=== PATIENT | male | born 1985 | race Caucasian/White ===

== ENCOUNTER 2019-12-14 08:31 | Outpatient (CLI) | payer OTHER, SELFPAY ==
--- NOTE | 2019-12-14 08:48 | MR_ITS ---
WS: [id number] MRI NECK WITH CONTRAST TECHNIQUE: Noncontrast axial T1, axial T2 FSE fat sat, coronal T2 fat sat, coronal T1, coronal T1 fat sat, sagittal T2 fat sat, plus contrast enhanced coronal, sagittal, and axial T1 fat sat images obta ined. CLINICAL INFORMATION: BILATERAL OTALGIA COMPARISON: None. FINDINGS: Parotid glands are normal. Normal submandibular glands. Normal palatine tonsils. Tongue base appears normal. No evidence of supraglottic or glottic mass. Normal epiglottis. Normal piriform sinuses. Normal posterior fossa. Normal vascular flow voids at the skull base. Mastoid air cells well aerated. Normal optic chiasm and pituitary infundibulum. Prominent right jugulodigastric lymph node measuring 11 mm in short axis dimension. Smaller slightly prominent left jugular digastric lymph node measuring 8 mm in short axis dimension. Cervical canal is patent. Cord signal appears normal. Mild disc bulging C3-C4. Thyroid gland is normal. No evidence of supraclavicular mass or lesion. No cervical lymphadenopathy. MR/MR orbit face neck wo/w* [id number] IMPRESSION: 1. Salivary glands are normal in appearance. 2. No evidence of supraglottic or glottic mass. Tongue base appears normal. No rmal parapharyngeal fat. 3. Slightly prominent right greater than left jugulodigastric lymph nodes dwayne uring 11 mm short axis dimension the right. No cervical lymphadenopathy. 4. Mastoid air cells well aerated. 5. No evidence of supraclavicular mass or lesion.
== END 2019-12-14 08:32 | disposition home or self-care (01) ==
LOC: RADWPI 08:37
PROVIDERS: Family Provider Emergency Medicine Emergency Medical Services; PCP Emergency Medicine Emergency Medical Services; Visit Provider Specialist
DX: H92.03 Otalgia, bilateral (principal)
CPT/HCPCS: 70543; A9579

== ENCOUNTER → 2020-02-12 09:15 | Outpatient (BNVA) | payer OTHER, SELFPAY | PROVIDERS: Family Provider Emergency Medicine Emergency Medical Services; PCP Emergency Medicine Emergency Medical Services; Referring Provider Specialist; Visit Provider Nurse Practitioner | DX: G43.909 Migraine, unspecified, not intractable, without status migrainosus (principal) | CPT/HCPCS: 99204 ==

== ENCOUNTER 2020-03-12 10:55 | Outpatient (CLI) | payer OTHER, SELFPAY ==
--- NOTE | 2020-03-12 11:23 | MR_ITS ---
WS: [id number] MRI HEAD WITH CONTRAST TECHNIQUE: Sagittal T1, T2 axial, T2 axial FLAIR, axial susceptibility weighted imaging, axial diffus ion weighted images, and coronal T2 images were obtained. Pre and post-T1 axial and post T1 coronal i mages. ADC and FSPGR images. CLINICAL INFORMATION: see dx COMPARISON: None. FINDINGS: No evidence restricted diffusion to suggest acute ischemia. Ventricular system and basal cisterns are patent. Mild supratentorial white matter changes nonspecific in a patient this age but can be seen w ith migraine headaches. Normal posterior fossa. Normal vascular flow voids at the skull base. No extr a-axial fluid collections. No evidence of mass or mass effect. Mucosal thickening left frontal sinus and frontal ethmoidal reces s. Mucosal thickening ethmoid air cells. Mastoid air cells are well aerated. No hemosiderin on suscep tibly weighted images. Normal optic chiasm and pituitary infundibulum. Temporal lobes and hippocampal formations are normal in appearance. No abnormal gadolinium enhancement. Normal Meckel's cave and cavernous sinuses. Normal dural venous sinuses. MR/MR head wo/w con [id number] IMPRESSION: 1. No evidence of restricted diffusion to suggest acute ischemia. 2. Mild supratentorial white matter changes nonspecific in a patient this age but can be seen with migraine headaches. 3. Mild mucosal thickening in the paranasal sinuses. 4. No abnormal intracranial enhancement. 5. No hemosiderin on the susceptibility weighted images. 6. No other significant findings.
== END 2020-03-12 10:56 | disposition home or self-care (01) ==
LOC: RADWPI 11:05
PROVIDERS: PCP Emergency Medicine Emergency Medical Services; Visit Provider Nurse Practitioner
DX: G43.909 Migraine, unspecified, not intractable, without status migrainosus (principal)
CPT/HCPCS: 70553; A9579

== ENCOUNTER → 2020-03-21 13:55 | Outpatient (BNVA) | payer OTHER, SELFPAY | PROVIDERS: PCP Emergency Medicine Emergency Medical Services; Visit Provider Nurse Practitioner | DX: G43.909 Migraine, unspecified, not intractable, without status migrainosus (principal) | CPT/HCPCS: 99213 ==

== ENCOUNTER 2020-10-09 14:49 | Outpatient (CLI) | payer OTHER, SELFPAY ==
--- NOTE | 2020-10-09 15:15 | MR_ITS ---
WS: [id number] MRI BRAIN WITH AND WITHOUT CONTRAST HISTORY: Abnormal MRI brain/headache COMPARISON: 03/12/2020 TECHNIQUE: Multiplanar imaging performed through the brain with MultiHance 20 ml's IV. No acute infarcts are seen. Archuleta-white matter differentiation is well preserved. There are numerous T 2 and FLAIR signal hyperintensities in subcortical white matter in the bilateral frontal lobes, simil ar to the prior study. No significant increase in the white matter disease. No prior infarcts or hemo rrhage. No susceptibility artifacts or prior lacunar infarcts. Ventricles and extra-axial spaces are normal. Clivus and pituitary gland are normal. Visualized posterior fossa and brainstem are also normal. Postcontrast images are negative for masses or vascular malformations. Dural venous sinuses are normal. Paranasal sinuses: Dense mucoperiosteal thickening in the LEFT frontal and frontal ethmoid recess. Ot herwise sinuses are clear. Mastoid air cells: Normal. Calvarium and scalp: Normal. MR/MR head wo/w con [id number] IMPRESSION: 1. Mild to moderate T2 and FLAIR signal hyperintensities in the subcortical wh ite matter of the frontal lobes. More than typically noted for a patient of thi s age. No progression since the prior study. Etiologies to consider are related to hypertension and migraines. 2. LEFT frontal and frontal ethmoid sinusitis. 3. No enhancing masses.
[2020-10-09] MEDS: gadobenate dimeglumine 20 mL vial IV (15:36)
== END 2020-10-09 14:50 | disposition home or self-care (01) ==
LOC: RADSHAW 14:50
PROVIDERS: PCP Emergency Medicine Emergency Medical Services; Visit Provider Nurse Practitioner
DX: G43.909 Migraine, unspecified, not intractable, without status migrainosus (principal); R90.89 Other abnormal findings on diagnostic imaging of central nervous system
CPT/HCPCS: 70553; A9577

== ENCOUNTER 2021-05-19 12:14 | Emergency (ER) | payer OTHER, SELFPAY ==
[2021-05-19 12:24] VITALS: BP 141/94; PULSE 65; RESP 15; TEMP 36.8; O2SAT 99; BMI 26.4
--- NOTE | 2021-05-19 12:37 | XRR_ITS ---
PROCEDURE INFORMATION: Exam: XR Chest Exam date and time: 05/19/2021 12:37 PM Age: 35 years old Clinical indication: Left-sided; Patient HX: Left sided chest pain for 10 days TECHNIQUE: Imaging protocol: XR of the chest. Views: 2 views. COMPARISON: MR orbit face neck wo/w* [id number] 12/14/2019 8:43 AM FINDINGS: Lungs: Unremarkable. No consolidation. Pleural spaces: Unremarkable. No pleural effusion. No pneumothorax. Heart/Mediastinum: Unremarkable. No cardiomegaly. Bones/joints: Unremarkable. XR/XR chest 2V* [id number] IMPRESSION: No acute findings. Radiation Dose CTDIVOL = (mGy): DLP = (mGy-cm)
--- NOTE | 2021-05-19 12:38 | ECG_ITS ---
[facility] Test Date: 2021-05-19 Pat Name: Boby Ricketts Department: Room: Gender: Male Machine Inker: : 1985 Requested By: Vitaliy Ladd Order Number: [id number] Brian MD: Ariel Avila M.D. Measurements Intervals Maxwell Rate: 69 P: 65 KS: 155 QRS: 50 QRSD: 83 T: 58 QT: 360 QTc: 386 Interpretive Statements SINUS RHYTHM MODERATE ST DEPRESSION [0.05+ mV ST DEPRESSION] No previous ECG available for comparison Electronically Signed On 05-19-2021 20:02:18 PREVENTIVE MAINTENANCE COORDINATOR by Ariel Avila M.D. [id number]
[2021-05-19 12:57] LABS: Basophils % 0.8 %; Eosinophils # 0.1 10^3/uL (0.0-0.8); Eosinophils % 1.4 %; Hematocrit 43.8 % (42.0-52.0); Hemoglobin 15.3 g/dL (11.7-16.6); Lymphocytes # 1.3 10^3/uL (0.8-4.8); Lymphocytes % 24.4 %; Mean Corpuscular HGB Conc 34.9 g/dL (30.0-36.0); Mean Corpuscular Hemoglobin 31.5 pg (28.0-34.0); Mean Corpuscular Volume 90.1 fl (80-94); Mean Platelet Volume 10.2 fL (7.4-10.4); Monocytes # 0.3 10^3/uL (0.2-0.9); Monocytes % 5.8 %; Neutrophils # 3.45 10^3/uL (1.8-7.7); Neutrophils % 67.2 %; Nucleated Red Blood Cells % 0 %; Platelet Count 246 10^3/cmm (130-400); Red Blood Count 4.86 10^6/uL (4.1-5.3); Red Cell Distribution Width 11.1 % (12.1-15.1); White Blood Count 5.1 10^3/uL (4.0-10.0)
[2021-05-19] MEDS: acetaminophen 500 mg Tablet 1000 MG PO (13:04)
[2021-05-19 13:15] LABS: D Dimer 0.32 ug/mIFEU (0-0.59)
[2021-05-19 13:20] LABS: Anion Gap 13.9 (5-19); Blood Urea Nitrogen 19 mg/dL (6-20); Calcium 9.1 mg/dL (8.5-10.5); Carbon Dioxide 28 mmol/L (22-29); Chloride 105 mmol/L (98-107); Glucose 100 mg/dL (65-115); Osmolality Calculated 298 mOsm/kg (285-295); Potassium 3.9 mmol/L (3.5-5.1); Sodium 143 mmol/L (136-145)
[2021-05-19 13:22] LABS: Troponin(5th) Baseline 6 ng/L (0-15)
--- NOTE | 2021-05-19 13:36 | ED_ITS ---
HPI - General Adult General: Chief complaint: Chest Pain Stated complaint: Chest Pain Time Seen by Provider: 05/19/21 12:36 History of Present Illness: HPI narrative: CC: Chest Pain HPI: This is a [35] yo patient w/ no PMH presenting to the ED complaining of a cute sudden onset intermittent dull chest pain x 1 week with radiation to the L shoulder and L neck. Patient also that he has associated fatigue in the morningwith this pain. He tells me that he has about 8-10 of these episodes lasting for few seconds at a time. Patient denies any chest tightness, first of breath, stabbing chest pain, fever/chills or recent trauma. No associated with shortness of breath, chest pain or dyspnea on exertion. Pain is not tearing in nature and does not radiate to the back. Pain not associated with vomiting or PO intake. Denies any recent sympathomimetic drug use. Patient denies any cough. Denies palpitations, dysphagia, diaphoresis, radiation of pain to bilateral arms, jaw. Denies F/N/V/D. Patient denies any recent immobility, surgery, unilateral leg swelling, or prior PE. Patient denies any orthopnea. Onset: 1 week ago Duration: ongoing for the last 1 week Location: home Severity: mild/moderate Review of Systems Narrative: Constitutional: No fever, no chills. HEENT: No vision changes, no sore throat. CV: +chest pain, no palpitations. PULM: No cough, No dyspnea. GI: No abdominal pain, no N/V/D. : No dysuria, no frequency, no hematuria. MSKEL: No arthralgias, no edema. SKIN: No new rashes, no lesions. NEURO: No headache, no focal weakness. HEME: No easy bleeding or bruising. PSYCH: No change in mood or affect. [facility] ED PFSH: Medical History (Updated 05/19/21 @ 12:42 by Vitaliy Ladd MD) Abnormal brain MRI Family History Mother Mitral valve prolapse Other Cancer Social History Smoking and tobacco status: current some day smoker Physical Exam Narrative: EXAM NARRATIVE: Head: Atraumatic, normocephalic Eyes: PERRL, EOMI, conjunctiva without injection ENT: Throat without erythema, lesions or exudate, MMM NECK: Supple, trachea midline, no JVD LUNGS: LCTA CV: RRR, S1,S2, no murmurs, rubs, gallops. 2+ peripheral pulses in UEs ABDOMEN: Soft, nontender, nondistended, BS x4, no rigidity, no guarding, no rebound EXTREMITY: Normal ROM, no pitting edema, no calf tenderness to palpation SKIN: No rash or erythema NEURO: Awake and alert. No focal motor deficits. PSYCH: Normal mood and affect. Course Vital Signs: Vital signs: Vital Signs Temperature 98.2 F 05/19/21 12:24 Pulse Rate 62 05/19/21 14:21 Respiratory Rate 16 05/19/21 14:21 Blood Pressure 139/96 05/19/21 14:21 Pulse Oximetry 99 05/19/21 14:21 MDM - General Adult MDM Narrative: Medical decision making narrative: [35]yo patient presenting to the ED with evaluation of new onset sharp chest pain. HDS, pulse 2+ radially bilaterally, no signs of fluid overload, AAOx3, neuro exam intact. Given History and Exam today I have no suspicion for ACS, Pneumothorax, Pneumonia, Pulmonary Embolus, Tamponade, Aortic Dissection or other emergent problems as a cause for this presentation. Workup: ECG, CXR, CBC, BMP, Troponin Interventions: Tylenol and toradol Findings: ECG: No overt evidence of STEMI, hyperacute T waves, localizable STD or T wave inversions. No evidence of Brugada?s sign, delta wave, epsilon wave, significantly prolonged QTc, or malignant arrhythmia. No Q waves. Other Labs unremarkable for emergent problems. CXR: Without PTX, PNA, or widened mediastinum Last Stress Test: never Last Heart Catheterization: never HEART Score: 0 Dimer wnl [1:38pm] On reassessment, the patient is HDS, no complaints of persistent chest pain in the ED after evaluation. ECG is non-ischemic. Workup today is unremarkable. Doubt ACS/PE or other emergent causes of chest pain. Doubt ACS/PE or other emergent causes of chest pain. No suspicion for aortic dissection given no widened mediastinum, 2+ upper extremity pulses, or tearing pain. No suspicion for PE given no pleuritic chest pain, recent immobilization or surgery hemoptysis, or other VTE risk factors. EKG is non-ischemic. XR normal. Patient request to be seen by our italian tutor and have given patient follow-up in the next week. Rx: Tylenol 500mg Q6Hrs PRN pain Disposition: Discharge. Strict return precautions discussed with the patient with full understanding. Advised patient to follow up promptly with a primary care provider in 24-48 hrs if the patient has persistent symptoms. Given return instructions for any crushing/tearing chest pain, focal weakness, syncope or any new or concerning issues. Lab Data: Labs: Lab Results 05/19/21 05/19/21 05/19/21 12:45 12:45 12:45 WBC 5.1 10^3/uL 10^3/ uL (4.0-10.0) RBC 4.86 10^6/uL 10^6 /uL (4.1-5.3) Hgb 15.3 g/dL g/dL (11.7-16.6) Hct 43.8 % % (42.0-52.0) MCV 90.1 fl fl (80-94) MCH 31.5 pg pg (28.0-34.0) MCHC 34.9 g/dL g/dL (30.0-36.0) RDW 11.1 % L % (12.1-15.1) Plt Count 246 10^3/cmm 10^3 /cmm (130-400) MPV 10.2 fL fL (7.4-10.4) Neut % (Auto) 67.2 % % Lymph % (Auto) 24.4 % % [place] % (Auto) 5.8 % % Eos % (Auto) 1.4 % % Baso % (Auto) 0.8 % % Neut # (Auto) 3.45 10^3/uL 10^3 /uL (1.8-7.7) Lymph # (Auto) 1.3 10^3/uL 10^3/ uL (0.8-4.8) [place] # (Auto) 0.3 10^3/uL 10^3/ uL (0.2-0.9) Eos # (Auto) 0.1 10^3/uL 10^3/ uL (0.0-0.8) Baso # (Auto) 0.0 10^3/uL 10^3/ uL (0.0-0.1) Nucleated RBC % (a uto) 0 % % Nucleated RBCs # 0.0 /100WBC /100W BC D-Dimer Sodium 143 mmol/L mmol/L (136-145) Potassium 3.9 mmol/L mmol/L (3.5-5.1) Chloride 105 mmol/L mmol/L (98-107) Carbon Dioxide 28 mmol/L mmol/L (22-29) Anion Gap 13.9 (5-19) BUN 19 mg/dL mg/dL (6-20) Creatinine 0.9 mg/dL mg/dL (0.7-1.2) GFR Calculation 96.0 mL/min mL/mi n (90-130) Glucose 100 mg/dL mg/dL (65-115) Calculated Osmolal ity 298 mOsm/kg H mOs m/kg (285-295) Calcium 9.1 mg/dL mg/dL (8.5-10.5) Troponin T Baselin e 6 ng/L ng/L (0-15) 05/19/21 12:45 WBC RBC Hgb Hct MCV MCH MCHC RDW Plt Count MPV Neut % (Auto) Lymph % (Auto) [place] % (Auto) Eos % (Auto) Baso % (Auto) Neut # (Auto) Lymph # (Auto) [place] # (Auto) Eos # (Auto) Baso # (Auto) Nucleated RBC % (a uto) Nucleated RBCs # D-Dimer 0.32 ug/mIFEU ug/ mIFEU (0-0.59) Sodium Potassium Chloride Carbon Dioxide Anion Gap BUN Creatinine GFR Calculation Glucose Calculated Osmolal ity Calcium Troponin T Baselin e Imaging Data^: Other Imaging: Radiologist's impression: [address] [id number] ReportSigned Patient: Boby Ricketts MUnernesto #: [id number]: 1985Acct#:[id number]/Sex: 35 / MADM Date: 05/19/21Loc: ERRoom/Bed:Attending Dr: Ordering Provider/Ordering MD: Vitaliy Ladd MD Date of Service: 05/19/21 Procedure(s): XR chest 2V* [id number] Accession Number(s): [id number] Report Number: [id number] PROCEDURE INFORMATION: Exam: XR Chest Exam date and time: 05/19/2021 12:37 PM Age: 35 years old Clinical indication: Left-sided; Patient HX: Left sided chest pain for 10 days TECHNIQUE: Imaging protocol: XR of the chest. Views: 2 views. COMPARISON: MR orbit face neck wo/w* [id number] 12/14/2019 8:43 AM FINDINGS: Lungs: Unremarkable. No consolidation. Pleural spaces: Unremarkable. No pleural effusion. No pneumothorax. Heart/Mediastinum: Unremarkable. No cardiomegaly. Bones/joints: Unremarkable. XR/XR chest 2V* [id number] IMPRESSION: No acute findings. Radiation Dose CTDIVOL = (mGy): DLP = (mGy-cm) Dictated By:Hector Mendoza By:Hector Mendoza Date/Time:05/19/21 1322DD/ 1237 Discharge Plan Discharge Patient Disposition: Home Clinical Impression: Chest pain Condition: Stable Prescriptions: New acetaminophen 500 mg tablet 500 mg PO Q6H PRN (Reason: pain) 5 Days Qty: 20 RF: 0 No Action acyclovir 400 mg tablet 400 mg PO QDAY PRNRF: 0 loratadine [Claritin] 10 mg tablet 10 mg PO DAILY RF: 0 ketorolac 10 mg tablet 10 mg PO Q6H PRN (Reason: pain) 5 Days Qty: 20 RF: 0 Discharge Orders: Discharge ED (Routine); Ordered 05/19/21 Ordered By: Vitaliy Ladd Referrals: Luke Robert, DO [Primary Care Provider] - Discharge Diet: Advance as tolerated Discharge Activity: Resume usual activity Patient Instructions: Chest Pain (ED) Activity Restrictions/Additional Instructions: Come back to the emergency room if your chest pain worsens, have any fever or chills, worsening shortness of breath, worsening exertional lightheadedness, or any new or concerning complaints. Coding Level of Care Code ED Doll Wig Maker Rooted Hair for [address]
[2021-05-19] MEDS: ketorolac 30 mg/mL INJ IVP (13:48)
[2021-05-19 14:21] VITALS: BP 139/96; PULSE 62; RESP 16; O2SAT 99
--- NOTE | 2021-05-20 15:26 | DCPLANNER ---
district operations manager had message to schedule a follow up appointment for patient with [facility]. district operations manager called [facility], spoke with Angella, gave clinic patients information. A follow up appointment is scheduled for , June 05, 2021 at 2:[address] Stephens. district operations manager called patient and gave him the appointment information. Patient has [employer] insurance, casey saw operator emailed patients information to September with [employer] [facility], so that the authorization process could be started.
--- NOTE | 2021-06-26 14:13 | DCPLANNER ---
Patient had a follow up appointment scheduled with [facility] - appointment was cancelled.
== END 2021-05-19 14:23 | disposition home or self-care (01) ==
PROVIDERS: Emergency Provider Emergency Medicine; PCP Emergency Medicine Emergency Medical Services
DX: R07.9 Chest pain, unspecified (principal); F17.210 Nicotine dependence, cigarettes, uncomplicated
CPT/HCPCS: 71046; 80048; 84484; 85025; 85378; 93005; 96374; 99283; J1885

== ENCOUNTER 2021-07-14 08:09 | Outpatient (CLI) | payer OTHER, SELFPAY ==
[2021-07-14 08:15] VITALS: BP 128/87; PULSE 72; RESP 16; TEMP 36.6; O2SAT 98; BMI 26.9
[2021-07-14 09:09] VITALS: BP 124/84; PULSE 69; RESP 16; TEMP 36.6; O2SAT 96
[2021-07-14 10:09] VITALS: BP 126/85; PULSE 68; RESP 16; TEMP 36.6; O2SAT 99
== END 2021-07-14 08:10 | disposition home or self-care (01) ==
PROVIDERS: PCP Emergency Medicine Emergency Medical Services; Visit Provider Nurse Practitioner Family
DX: U07.1 COVID-19 (principal)
CPT/HCPCS: 96365

== ENCOUNTER 2022-12-01 10:51 | Emergency (ER) | payer OTHER, SELFPAY ==
[2022-12-01 11:03] VITALS: BP 148/97; PULSE 62; RESP 12; TEMP 36.7; O2SAT 100; BMI 29.1
[2022-12-01 11:26] VITALS: BP 138/90; PULSE 55; RESP 16; O2SAT 98
--- NOTE | 2022-12-01 11:28 | CT_ITS ---
WS: [id number] CT THORACIC SPINE TECHNIQUE: Noncontrast CT of the thoracic spine with coronal and sagittal reformatted images. CLINICAL INFORMATION: fall back pain COMPARISON: None. DLP: 1321.[address] scans at [facility] use at least one of these dose optimization techniques: automated e xposure control; mA and/or kV adjustment per patient size (includes targeted exams where dose is matc hed to clinical indication); or iterative reconstruction. FINDINGS: Mild thoracic curve. No acute compression fractures. Disc space heights and vertebral body heights ar e relatively well-preserved. No high-grade central canal stenosis. No acute fractures or dislocation. Adrenal glands are normal. Normal GE junction. Lung bases are well aerated. CT/CT thoracic spin wo con* [id number] IMPRESSION: No acute thoracic spine findings.
--- NOTE | 2022-12-01 11:28 | CT_ITS ---
WS: [id number] CT CERVICAL TRAUMA TECHNIQUE: Noncontrast CT of the cervical spine with coronal and sagittal reformatted images. CLINICAL INFORMATION: fall neck pain COMPARISON: None. DLP: 183.[address] scans at [facility] use at least one of these dose optimization techniques: automated e xposure control; mA and/or kV adjustment per patient size (includes targeted exams where dose is matc hed to clinical indication); or iterative reconstruction. FINDINGS: Straightening of the normal cervical lordosis. Normal craniocervical junction. Normal C1-C2 articulat ion. Dens is normal in appearance. Normal occipital condyles. No high-grade spinal canal narrowing. N ormal C1 ring. No evidence of acute fracture or dislocation. Normal prevertebral soft tissues. Mastoids air cells are well aerated. CT/CT cervical spin wo con* [id number] IMPRESSION: No evidence of acute fracture or dislocation.
--- NOTE | 2022-12-01 11:28 | CT_ITS ---
WS: [id number] CT LUMBAR SPINE TECHNIQUE: Noncontrast CT of the lumbar spine with coronal and sagittal reformatted images. CLINICAL INFORMATION: fall back pain COMPARISON: None. DLP: 1321.[address] scans at [facility] use at least one of these dose optimization techniques: automated e xposure control; mA and/or kV adjustment per patient size (includes targeted exams where dose is matc hed to clinical indication); or iterative reconstruction. FINDINGS: Mild lumbar curve. No acute compression. No high-grade central canal stenosis. Normal transverse processes. Unilateral LEFT L5-S1 pars defect with mild widening and sclerosis. RIGH T pars appears intact. No significant anterolisthesis L5 on S1. Moderate facet arthropathy L4-L5 and L5-S1. Mild disc bulging L4-L5 and L5-S1 with slight effacement of ventral thecal sac. Mild LEFT L4-L5 and bilateral L5-S1 RIGHT greater than LEFT foraminal narrowing. Moderate RIGHT L5-S1 foraminal narrowing. CT/CT lumbar spine wo con* [id number] IMPRESSION: 1. No acute fractures. 2. LEFT unilateral pars defects L5-S1 with mild widening and sclerosis. No si gnificant anterolisthesis. 3. Mild disc bulging L4-L5 and L5-S1 described above with moderate facet arthr opathy at these levels. 4. Moderate RIGHT L5-S1 foraminal narrowing impinges the exiting RIGHT L5 nerv e root.
--- NOTE | 2022-12-01 12:14 | W.ED.FALL ---
HPI - Fall General: Chief Complaint: Fall Stated Complaint: fall, neck and back pain. Sent from [place] Time Seen by Provider: 12/01/22 11:18 History of Present Illness: Patient presents to the ER with complaints of neck pain upper back pain lower back pain. Patient states he was standing on a stool when he fell landed on his right side approximately 1 week ago. Patient has tried massage x2 for this patient went to the [place] doctor today for this and was put in a soft neck collar and sent over here for further imaging. Patient has not seen anyone about this or had any imaging done other than the [place] doctor that sent him over here today. complaint: fall Onset (ago): week(s) (1 week ago) Fall from: standing Loss of consciousness: None Symptoms prior to fall: none Location of injury: head, face and other (Spine) Severity: mild Quality: aching Associated symptoms-after fall: Reports neck pain Review of Systems General: Reports: 10 or more systems reviewed and unremarkable except in HPI and below Musc: Reports: neck pain PFSH ED PFSH: Medical History Abnormal brain MRI Family History Mother Mitral valve prolapse Other Cancer Social History Smoking and tobacco status: current some day smoker Physical Exam Const: COMMON NORMALS: no acute distress, average body habitus, patient oriented x3, no limitations, healthy appearing, alert and well nourished HENMT: COMMON NORMALS: normocephalic, atraumatic, hearing grossly normal bilaterally, external ears normal, Normal external nose present and moist oral mucous membranes HEAD & SCALP: normocephalic and atraumatic NOSE: Normal external nose present EXTERNAL EAR: Yes external ears normal Eye: COMMON NORMALS: Equal, round and reactive pupils present, EOMs intact bilaterally, conjunctivae normal and no scleral icterus CONJUNCTIVA: Yes conjunctivae normal PUPIL: Yes Equal, round and reactive pupils present Neck/C-Spine: COMMON NORMALS: no JVD OTHER: Patient had a soft c-collar on. Chest: COMMONS NORMALS: normal inspection of the chest and normal palpation of entire chest wall Resp: COMMON NORMALS: normal respiratory effort, No retractions, No use of accessory muscles and clear to auscultation bilaterally AUSCULTATION: clear to auscultation bilaterally Cardio: COMMON NORMALS: no JVD, regular rate, regular rhythm, S1 normal heart sound present, S2 normal heart sound present, No gallops present (Cardio), No clicks present (Cardio), No murmurs present (Cardio) and No rub (Cardio) RATE: regular rate RHYTHM: regular rhythm HEART SOUNDS: S1 normal heart sound present and S2 normal heart sound present GI: COMMON NORMALS: Normal to inspection, nondistended, normoactive bowel sounds present, Soft to palpation, non-tender, No hepatosplenomegaly present and no masses PALPATION: Yes Soft to palpation and Yes No hepatosplenomegaly present : COMMON NORMALS: Yes no CVA tenderness BLADDER/KIDNEY EXAM: Yes no CVA tenderness Back/Pelvis: COMMON NORMALS: no CVA tenderness Extremity: NARRATIVE EXTREMITY EXAM: Tenderness along entire spine with tenderness in paraspinal muscles. Limited range of motion secondary to pain Neuro: COMMON NORMALS: patient oriented x3 SENSORIUM/ORIENTATION: Yes alert Course Vital Signs: Vital signs: Vital Signs Temperature 98.1 F 12/01/22 11:03 Pulse Rate 55 L 12/01/22 11:26 Respiratory Rate 16 12/01/22 11:26 Blood Pressure 138/90 12/01/22 11:26 Pulse Oximetry 98 12/01/22 11:26 Oxygen Delivery Me thod Room Air 12/01/22 11:26 MDM - Fall Medical Decision Making Patient presents to the ER with complaints of neck and spinal pain after falling off a stool approximately 1 week ago. Imaging was obtained of the entire spine which was negative for acute injury however did show some foraminal stenosis and spinal stenosis in the L4 the S1 region. Patient was given 60 mg Toradol IM and discharged home patient is to follow-up with his doctor in approximately 1 week. Patient will be given prednisone and cyclobenzaprine to take on an as-needed basis. Differential Diagnosis Unlikely syncope, dislocation of shoulder region, fracture of wrist, compression fracture, concussion with loss of consciousness or concussion without loss of consciousness Medical Records I reviewed the patient's medical records. Lab Data I reviewed the patient's lab results. Radiology Impressions Cervical Spine CT 12/01/22 11:28 IMPRESSION: No evidence of acute fracture or dislocation. Lumbar Spine CT 12/01/22 11:28 IMPRESSION: 1. No acute fractures. 2. LEFT unilateral pars defects L5-S1 with mild widening and sclerosis. No significant anterolisthesis. 3. Mild disc bulging L4-L5 and L5-S1 described above with moderate facet arthropathy at these levels. 4. Moderate RIGHT L5-S1 foraminal narrowing impinges the exiting RIGHT L5 nerve root. Thoracic Spine CT 12/01/22 11:28 IMPRESSION: No acute thoracic spine findings. Discharge Plan Discharge Patient Disposition: Home Clinical Impression: Lumbar spine pain, Thoracic spine pain, Cervical spine pain Fall Qualifiers: Encounter type: initial encounter Qualified Code(s): W19.XXXA - Unspecified fall, initial encounter Condition: Stable Prescriptions: New prednisone 50 mg tablet 50 mg PO DAILY 7 Days Qty: 7 0RF cyclobenzaprine 5 mg tablet 5 mg PO Q8H PRN (Reason: muscle spasm) Qty: 14 0RF No Action loratadine [Claritin] 10 mg tablet 10 mg PO QAM Tylenol Ex Str Rapid Release 500 mg Tablet 1,000 mg PO Q6H PRN (Reason: Pain) acyclovir 200 mg capsule 400 mg PO QAM Flonase 50 mcg/actuation [place],Suspension 2 spray INTRANASAL DAILY PRN (Reason: Allergy Symptoms) Discharge Orders: Discharge ED (Routine); Ordered 12/01/22 Ordered By: Rickey Perrin Referrals: Luke Robert DO [Primary Care Provider] - 1 week Patient Instructions: Acute Low Back Pain (ED), Acute Neck Pain (ED) Coding Level of Care Code ED Resident Care Technician for [facility] [address]
--- NOTE | 2022-12-01 12:40 | PC.PHAR ---
pt states he takes care of his own medications-pt states he is not taking terbinafine 250mg daily medication [facility] -pt states he takes acyclovir 400mg qam [facility] has 400mg bid-
[2022-12-01] MEDS: ketorolac 60 mg/2 mL INJ IM (13:12)
[2022-12-01 13:30] VITALS: BP 128/85; PULSE 84; RESP 18; O2SAT 98
== END 2022-12-01 13:32 | disposition home or self-care (01) ==
PROVIDERS: Emergency Provider Emergency Medicine; PCP Emergency Medicine Emergency Medical Services
DX: M54.50 Low back pain, unspecified (principal); M54.2 Cervicalgia; M54.6 Pain in thoracic spine
CPT/HCPCS: 72125; 72128; 72131; 96372; 99284; J1885

== ENCOUNTER → 2024-03-08 10:08 | Outpatient (BNVA) | payer SELFPAY | PROVIDERS: PCP Emergency Medicine Emergency Medical Services; Visit Provider Nurse Practitioner Family | DX: R09.89 Other specified symptoms and signs involving the circulatory and respiratory systems (principal) | CPT/HCPCS: 87071; 87880 ==

== ENCOUNTER 2024-04-19 20:00 | Outpatient (CLI) | payer SELFPAY | END 2024-04-19 20:01 | disposition home or self-care (01) | LOC: SLEEP 23:23 | PROVIDERS: PCP Emergency Medicine Emergency Medical Services; Visit Provider Nurse Practitioner Family | DX: R40.0 Somnolence (principal); R06.83 Snoring | CPT/HCPCS: 95810 ==

== ENCOUNTER 2024-05-23 08:25 | Outpatient (CLI) | payer OTHER, SELFPAY ==
[2024-05-23 08:37] LABS: Sperm Present Sperm Not Present
== END 2024-05-23 08:26 | disposition home or self-care (01) ==
PROVIDERS: PCP Emergency Medicine Emergency Medical Services; Visit Provider Emergency Medicine Emergency Medical Services
DX: Z98.52 Vasectomy status (principal)
CPT/HCPCS: 89310

== ENCOUNTER 2024-05-28 17:09 | Emergency (ER) | payer OTHER, SELFPAY ==
[2024-05-28 17:23] VITALS: BP 142/92; PULSE 59; RESP 16; O2SAT 99; BMI 28.5
--- NOTE | 2024-05-28 17:30 | XRR_ITS ---
PROCEDURE INFORMATION: Exam: XR Right Hand Exam date and time: 05/28/2024 5:37 PM Age: 38 years old Clinical indication: Pain; Other: RT thumb; Additional info: Thumb injury TECHNIQUE: Imaging protocol: Radiologic exam of the right hand. Views: 3 or more views. COMPARISON: No relevant prior studies available. FINDINGS: Bones/joints: Normal. Soft tissues: Normal. XR/XR hand RT min 3V* [id number] IMPRESSION: No acute findings.
--- NOTE | 2024-05-28 17:34 | W.ED.EXTPRO ---
Documented by User: AMIRA Adler 05/28/24 18:22 HPI - Extremity Problem General: Chief complaint: Extremity Injury, Upper Stated complaint: smashed thumb Time Seen by Provider: 05/28/24 17:19 Source: patient Mode of arrival: ambulatory Limitations: no limitations History of Present Illness: Patient is a 38-year-old male present to the emergency department after right thumb injury occurred around 1630. States he was lifting weights when he smashed his thumb it between barbell and a weight bench, is having trouble moving the thumb and is having numbness. States that it feels really tight and he cannot make a fist. He has not taken anything for the pain yet, however did apply ice after this happened. He is right-hand dominant. No other concerning symptoms reported at this time. MD Complaint: extremity pain Onset (ago): hour(s) Pain Consistency: constant Location: right and upper extremity (thumb) Radiation: proximal Relieving factors: nothing Exacerbating factors: range of motion Associated symptoms: Deny chest pain, fever(s) or rash Related Data Home Medications Medication Instructions Recorded Confirmed loratadine 10 mg tablet (Claritin) 10 mg PO QAM 02/12/20 03/08/24 acetaminophen 500 mg tablet 1,000 mg PO Q6H PRN Pain 12/01/22 03/08/24 acyclovir 200 mg capsule 400 mg PO QAM 12/01/22 03/08/24 fluticasone propionate 50 2 spray intranasal DAILY PRN 12/01/22 03/08/24 mcg/actuation nasal Allergy Symptoms spray,suspension Previous Rx's Medication Instructions Recorded cyclobenzaprine 5 mg tablet 5 mg PO Q8H PRN muscle spasm #14 12/01/22 tabs Allergies Allergy/AdvReac Type Severity Reaction Status Date / Time No Known Allergies Allergy Verified 03/08/24 09:47 Review of Systems General: Reports: 10 or more systems reviewed and unremarkable except in HPI and below Const: Denies: fever(s) or chills Card: Denies: chest pain Resp: Denies: dyspnea or productive cough GI: Denies: abdominal pain, nausea, vomiting or diarrhea : Denies: flank pain Musc: Reports: extremity pain (right thumb) and limited range of motion (right thumb); Denies: neck pain, back pain, extremity swelling, joint pain, joint swelling, joint redness, joint warmth or muscle weakness Skin/Breast: Denies: rash Neuro: Denies: headache(s), numbness in extremities or weakness in extremities PFSH ED PFSH: Medical History Abnormal brain MRI Family History Mother Mitral valve prolapse Other Cancer Social History Smoking and tobacco/nicotine status: unknown if used tobacco/nicotine Physical Exam Const: COMMON NORMALS: no acute distress, patient oriented x3, no limitations, healthy appearing, alert and well nourished HENMT: COMMON NORMALS: normocephalic and atraumatic HEAD & SCALP: normocephalic and atraumatic Neck/C-Spine: COMMON NORMALS: full ROM, supple and no meningeal signs Resp: COMMON NORMALS: normal respiratory effort, No use of accessory muscles and clear to auscultation bilaterally AUSCULTATION: clear to auscultation bilaterally Cardio: COMMON NORMALS: regular rate and regular rhythm RATE: regular rate RHYTHM: regular rhythm Extremity: COMMON NORMALS: capillary refill normal, no joint enlargement and no clubbing, cyanosis or edema NARRATIVE EXTREMITY EXAM: Tender to palpation diffusely along the right thumb. No anatomical snuffbox tenderness. No obvious swelling of the right thumb. No bruising. Limited range of motion with opposition as well as flexion/extension. Normal wrist exam. Normal elbow exam. Neuro: COMMON NORMALS: patient oriented x3, moves all extremities, no focal motor deficits and no sensory deficits noted SENSORIUM/ORIENTATION: Yes alert MENINGEAL SIGNS: Yes no meningeal signs Skin: COMMON NORMALS: no rashes or lesions noted GENERAL SKIN EXAM: no rashes or lesions noted Course Vital Signs: Vital signs: Vital Signs Pulse Rate 56 L 05/28/24 18:26 Respiratory Rate 16 05/28/24 17:23 Blood Pressure 129/83 05/28/24 18:26 Pulse Oximetry 99 05/28/24 18:26 Oxygen Delivery Me thod Room Air 05/28/24 17:23 MDM - Extremity (Nontraumatic) Medical Decision Making Patient injured his right thumb about an hour and a half prior to arrival, x-ray not demonstrating any acute findings. Likely this is a contusion, will have her follow-up with primary care routinely for reevaluation. Instructed him to continue using ice and alternating ibuprofen and Tylenol. Return precautions given. Lab Data Radiology Impressions Hand X-Ray 05/28/24 17:30 IMPRESSION: No acute findings. All radiology interpretation(s) finalized by discharge Discharge Plan Discharge Patient Disposition: Home Clinical Impression: Contusion of right thumb Qualifiers: Encounter type: initial encounter Damage to nail status: without damage Qualified Code(s): S60.011A - Contusion of right thumb without damage to nail, initial encounter Condition: Stable Prescriptions: No Action loratadine [Claritin] 10 mg tablet 10 mg PO QAM Tylenol Ex Str Rapid Release 500 mg Tablet 1,000 mg PO Q6H PRN (Reason: Pain) acyclovir 200 mg capsule 400 mg PO QAM Flonase 50 mcg/actuation [place],Suspension 2 spray INTRANASAL DAILY PRN (Reason: Allergy Symptoms) cyclobenzaprine 5 mg tablet 5 mg PO Q8H PRN (Reason: muscle spasm) Qty: 14 0RF Discharge Orders: Discharge ED (Routine); Ordered 05/28/24 Ordered By: Clif Rahman Referrals: Luke Robert DO [Primary Care Provider] - Patient Instructions: Contusion in Adults (ED) Activity Restrictions/Additional Instructions: Ice. Alternate Tylenol and ibuprofen. Follow-up with your primary care provider for any further evaluation. Coding Level of Care Code ED Hay Stacker Operator for Chg F[facility] Documented by User: Joe Rod DO 05/28/24 22:18 HPI - Extremity Problem General: Chief complaint: Extremity Injury, Upper Stated complaint: smashed thumb Time Seen by Provider: 05/28/24 17:19 Related Data Home Medications Medication Instructions Recorded Confirmed loratadine 10 mg tablet (Claritin) 10 mg PO QAM 02/12/20 03/08/24 acetaminophen 500 mg tablet 1,000 mg PO Q6H PRN Pain 12/01/22 03/08/24 acyclovir 200 mg capsule 400 mg PO QAM 12/01/22 03/08/24 fluticasone propionate 50 2 spray intranasal DAILY PRN 12/01/22 03/08/24 mcg/actuation nasal Allergy Symptoms spray,suspension Previous Rx's Medication Instructions Recorded cyclobenzaprine 5 mg tablet 5 mg PO Q8H PRN muscle spasm #14 12/01/22 tabs Allergies Allergy/AdvReac Type Severity Reaction Status Date / Time No Known Allergies Allergy Verified 03/08/24 09:47 REPLACED BY [facility] ED PFS: Medical History Abnormal brain MRI Family History Mother Mitral valve prolapse Other Cancer Social History Smoking and tobacco/nicotine status: unknown if used tobacco/nicotine Course Vital Signs: Vital signs: Vital Signs Pulse Rate 56 L 05/28/24 18:26 Respiratory Rate 16 05/28/24 17:23 Blood Pressure 129/83 05/28/24 18:26 Pulse Oximetry 99 05/28/24 18:26 Oxygen Delivery Me thod Room Air 05/28/24 17:23 MDM - Extremity (Nontraumatic) Medical Decision Making Patient injured his right thumb about an hour and a half prior to arrival, x-ray not demonstrating any acute findings. Likely this is a contusion, will have her follow-up with primary care routinely for reevaluation. Instructed him to continue using ice and alternating ibuprofen and Tylenol. Return precautions given. This patient was originally seen by Mr. Josiah PA-C.? I agree with his history, evaluation, and treatment. Lab Data Radiology Impressions Hand X-Ray 05/28/24 17:30 IMPRESSION: No acute findings. Discharge Plan Discharge Patient Disposition: Home Clinical Impression: Contusion of right thumb Qualifiers: Encounter type: initial encounter Damage to nail status: without damage Qualified Code(s): S60.011A - Contusion of right thumb without damage to nail, initial encounter Condition: Stable Prescriptions: No Action loratadine [Claritin] 10 mg tablet 10 mg PO QAM Tylenol Ex Str Rapid Release 500 mg Tablet 1,000 mg PO Q6H PRN (Reason: Pain) acyclovir 200 mg capsule 400 mg PO QAM Flonase 50 mcg/actuation [place],Suspension 2 spray INTRANASAL DAILY PRN (Reason: Allergy Symptoms) cyclobenzaprine 5 mg tablet 5 mg PO Q8H PRN (Reason: muscle spasm) Qty: 14 0RF Discharge Orders: Discharge ED (Routine); Ordered 05/28/24 Ordered By: Clif Rahman Referrals: Luke Robert DO [Primary Care Provider] - Patient Instructions: Contusion in Adults (ED) Activity Restrictions/Additional Instructions: Ice. Alternate Tylenol and ibuprofen. Follow-up with your primary care provider for any further evaluation. Coding Level of Care Code ED Hay Stacker Operator for [address]
[2024-05-28 18:26] VITALS: BP 129/83; PULSE 56; O2SAT 99
== END 2024-05-28 18:27 | disposition home or self-care (01) ==
PROVIDERS: Emergency Provider Physician Assistant; PCP Emergency Medicine Emergency Medical Services
DX: S60.011A Contusion of right thumb without damage to nail, initial encounter (principal); X58.XXXA Exposure to other specified factors, initial encounter
CPT/HCPCS: 73130; 99283

== ENCOUNTER 2024-06-01 15:13 | Outpatient (CLI) | payer OTHER, SELFPAY ==
[2024-06-01 15:24] LABS: Sperm Present Sperm Not Present
== END 2024-06-01 15:14 | disposition home or self-care (01) ==
LOC: LAB 15:14
PROVIDERS: PCP Emergency Medicine Emergency Medical Services; Visit Provider Urology
DX: Z98.52 Vasectomy status (principal)
CPT/HCPCS: 89310

== ENCOUNTER 2024-06-19 14:03 | Outpatient (CLI) | payer OTHER, SELFPAY ==
--- NOTE | 2024-06-19 14:07 | CT_ITS ---
WS: [id number] CT HEAD WITH AND WITHOUT CONTRAST HISTORY: ABNORMAL CT SCAN NEEDS REPEAT TECHNIQUE: Noncontrast 2.5 mm axial images obtained from the vertex to the skull base. Additional julio cesar ging performed at 2.5 mm axial images status post IV contrast. Bone and soft tissue windows are revie wed. All CT scans at [facility] use at least one of these dose optimization techniques: autom ated exposure control; mA and/or kV adjustment per patient size (includes targeted exams where dose i s matched to clinical indication); or iterative reconstruction. CONTRAST: Omnipaque 350; 100 mL IV. DLP: 2406.95 mGy.cm COMPARISON: MRI head 10/09/2020 No acute intracranial hemorrhage, edema or midline shift. No infarct or white matter disease identifi ed. No enhancing mass or vascular malformations identified. Dural venous sinuses are normally enhancing. Visualized [place] is unremarkable. Paranasal sinuses as visualized: Minimal mucoperiosteal thickening in the ethmoid air cells. No air-f luid levels. Mastoid air cells: Clear. Calvarium and scalp: Intact. CT/CT head wo/w con [id number] IMPRESSION: 1. No acute intracranial hemorrhage or edema. 2. No white matter disease identified or prior infarct. 3. No enhancing masses or vascular malformations.
[2024-06-19] MEDS: iohexol 350 mg/mL 500 mL Btl (per mL) IV (14:42)
== END 2024-06-19 14:04 | disposition home or self-care (01) ==
PROVIDERS: PCP Emergency Medicine Emergency Medical Services; Visit Provider Nurse Practitioner Family
DX: R93.0 Abnormal findings on diagnostic imaging of skull and head, not elsewhere classified (principal)
CPT/HCPCS: 70470

== ENCOUNTER 2025-04-09 08:26 | Emergency (ER) | payer OTHER, SELFPAY ==
[2025-04-09 08:31] VITALS: BP 159/106; PULSE 69; RESP 16; TEMP 36.6; O2SAT 97; BMI 29.0
--- OUTSIDE RECORDS SUMMARY | 2025-04-09 08:36 | XMS_ITS | Clinical Summary ---
Author Organization [facility] Address [address] [place] [address] Care Team Providers Care Moisture Conditioner Operator Name Role Phone Unavailable Primary Care Provider Unavailabl e Social History Tobacco Use Types Packs/Day Years Used Date Smoking Tobacco: Never Assessed Sex and Gender Information Value Date Recorded Sex Assigned at Not on file Legal Sex Male 11:36 AM CDT Gender Identity Not on file Sexual Orientation Not on file Plan of Treatment Health Maintenance Due Date Last Done Comments DTAP/TDAP/TD VACCINES (1 - Tdap) 2004 HEPATITIS B VACCINES (1 of 3 - 19+ 3-dose series) 01/2005 HPV VACCINES (1 - 3-dose SCDM series) 2012 INFLUENZA VACCINE (#1) 2025 Insurance [facility] [employer]
--- NOTE | 2025-04-09 08:37 | CT_ITS ---
WS: [id number] CT HEAD NONCONTRAST HISTORY: Head injury TECHNIQUE: Contiguous axial imaging performed through the brain. Bone and soft tissue windows. Sagittal and coronal reformats reviewed. All CT scans at [facility] use at least one of these dose optimization techniques: automated exposure control; mA and/or kV adjustment per patient size (includes targeted exams where dose is matched to clinical indication); or iterative reconstruction. DLP: 1495.53 mGy.cm COMPARISON: 06/19/2024 No acute intracranial hemorrhage, midline shift or mass effect. No atrophy or prior infarcts or herniation. No new area of edema or midline shift. Ventricles remain similar size as on the prior exam. Ventricles: Normal size with no hydrocephalus. No inferior displacement of the cerebellar tonsils. Paranasal sinuses: As visualized are clear. Mastoid air cells: Well pneumatized. Calvarium and scalp: Skull is intact with no soft tissue edema or swelling. CT/CT head wo con* [id number] IMPRESSION: Negative head CT. Similar CT head as compared to 06/19/2024. No subacute hemato ma or edema.
[2025-04-09 08:42] VITALS: BP 159/106; PULSE 72; RESP 16; O2SAT 99
--- NOTE | 2025-04-09 08:44 | CT_ITS ---
WS: [id number] CT CERVICAL SPINE HISTORY: Trauma TECHNIQUE: Contiguous 2.0 mm axial imaging performed through the entire cervical spine. Sagittal and coronal reformats also performed. All CT scans at [facility] use at least one of these dose optimization techniques: automated exposure control; mA and/or kV adjustment per patient size (includes targeted exams where dose is matched to clinical indication); or iterative reconstruction. DLP: 1495.53 mGy.cm COMPARISON: 12/01/2022 Very slight straightening of the normal cervical lordosis. Posterior alignment is normal. Craniocervical junction is normal. Lateral masses of C1 and C2 is normal. Facet joints are normally aligned. No cervical vertebral body fractures. C2-C3: Normal. C3-C4: Normal. C4-C5: Normal. C5-C6: Normal. C6-C7: Normal. C7-T1: Normal. Soft tissues are normal. Lung apices are clear. CT/CT cervical spin wo con* [id number] IMPRESSION: 1. No acute cervical spine fracture. 2. No acute disc protrusions. 3. Craniocervical junction is normally aligned. 4. Facet joints are normally aligned.
[2025-04-09 08:45] LABS: Hematocrit 45.3 % (37-53); Hemoglobin 15.70 g/dL (11.27-16.99); Mean Corpuscular HGB Conc 34.7 g/dL (30-55); Mean Corpuscular Hemoglobin 31.2 pg (27-33); Mean Corpuscular Volume 90.1 fl (82-101); Nucleated Red Blood Cells % 0 %; Platelet Count 264 10^3/cmm (157-399); Red Blood Count 5.03 10^6/uL (3.85-5.65); White Blood Count 4.92 10^3/uL (3.29-11.43)
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
[2025-04-09 09:02] LABS: Alanine Aminotransferase 14 U/L (0-41); Albumin Level 4.5 g/dL (3.5-5.2); Alkaline Phosphatase 87 U/L (40-130); Anion Gap 14.0 (5-19); Aspartate Amino Transferase 15 U/L (0-40); Blood Urea Nitrogen 11 mg/dL (6-20); Calcium 9.2 mg/dL (8.5-10.5); Carbon Dioxide 27 mmol/L (22-29); Chloride 104 mmol/L (98-107); Creatinine Clr Calc Pharmacy 96.9305; Globulin 3.0 g/dL (1.3-4.6); Glucose 83 mg/dL (65-115); Osmolality Calculated 291 mOsm/kg (285-295); Potassium 4.0 mmol/L (3.5-5.1); Sodium 141 mmol/L (136-145); Total Protein 7.5 g/dL (6.6-8.7)
[2025-04-09 10:02] VITALS: BP 132/86; PULSE 82; RESP 16; O2SAT 99
--- NOTE | 2025-04-09 10:02 | PC.PHAR ---
Pt is [place] and takes mostly otc medications. Pt does know what he takes.
--- NOTE | 2025-04-10 16:15 | PC.NURSE ---
Neurology referral sent.
== END 2025-04-09 09:59 | disposition home or self-care (01) ==
PROVIDERS: Emergency Provider Family Medicine; PCP Nurse Practitioner Family
DX: R51.9 Headache, unspecified (principal); F07.81 Postconcussional syndrome
CPT/HCPCS: 70450; 72125; 80053; 85025; 96374; 96375; 99285; J0780; J1885

== ENCOUNTER 2025-06-11 06:15 | Outpatient (CLI) | payer OTHER, SELFPAY ==
--- NOTE | 2025-06-11 06:35 | US_ITS ---
WS: [id number] Complete ABDOMINAL ULTRASOUND HISTORY: Elevelated LFTs, Epigastric Pain COMPARISON: 07/16/2016, 07/03/2016 Liver: 15.7 cm in length. Normal size liver and echogenicity. No bile duct dilatation or mass. Portal Vein: Normal hepatopetal flow with monophasic waveform. Gallbladder: Normally distended gallbladder with no stones or wall thickening. CBD: 0.3 cm Pancreas: Normal size and echogenicity. Right kidney: 10.6 cm x 5.1 x 4.7 cm. Cortex:1.0 cm. Normal size and echogenicity. No hydronephrosis or mass. Left kidney: 11.1 cm x 4.8 cm x 5.4 cm. Cortex: 1.2 cm. Normal size and echogenicity. No hydronephrosis or mass. Spleen: 12.3 cm. Normal size and echogenicity. Aorta and IVC: Unremarkable abdominal aorta and IVC. US/US abdomen complete* [id number] Impression: Normal complete abdomen ultrasound.
== END 2025-06-11 06:16 | disposition home or self-care (01) ==
LOC: RAD 06:16
PROVIDERS: PCP Nurse Practitioner Family; Visit Provider Family Medicine Geriatric Medicine
DX: R10.13 Epigastric pain (principal); R74.01 Elevation of levels of liver transaminase levels
CPT/HCPCS: 76700